=== PATIENT | female | born 1990 | race Two or more races ===

== ENCOUNTER 2023-12-30 06:01 | Inpatient (IN) | payer MEDICAID, OTHER ==
[~2023-12-30] VITALS: Ht 152.4 cm; Wt 69.4 kg
[2023-12-30] MEDS ORDERED: BUTORPHANOL TARTRATE 2 MG/1 ML VIAL IV PRN ×2 (06:30)
[2023-12-30] MEDS ORDERED: PENICILLIN G POT 5MIL/D5 50ML 50 ML IV ONE (06:30)
[2023-12-30] MEDS: WITCH HAZEL-GLYCERIN PAD TOP PRN (07:05)
[2023-12-30] MEDS: DERMOPLAST 60ML BOTTLE TOP PRN (07:05)
[2023-12-30] MEDS: PHISODERM TOP SOLN 240ML BTL TOP PRN (07:05)
[2023-12-30] MEDS: LACTATED RINGER'S 1,000 ML IV SCH (07:06)
[2023-12-30 07:07] LABS: Basophils # (auto) 0 10 ^3/uL (0-0.2); Basophils % (auto) 0.2 % (0.0-2.0); Eosinophils # (auto) 0 10 ^3/uL (0-0.8); Eosinophils % (auto) 0.5 % (0.0-7.0); Hematocrit 39.7 % (36.0-46.0); Hemoglobin 13.8 g/dL (12.2-16.2); Lymphocytes # (auto) 2.6 10 ^3/uL (0.4-5.4); Lymphocytes % (auto) 24.8 % (10.0-50.0); Mean Corpuscular Hemoglobin 32.4 pg (28.0-32.0); Mean Corpuscular Hgb Conc. 34.7 g/dL (32.0-36.0); Mean Corpuscular Volume 93.4 fL (80.0-100.0); Monocytes # (auto) 0.3 10 ^3/uL (0-1.3); Monocytes % (auto) 3.3 % (0.0-12.0); Neutrophils # (auto) 7.6 10 ^3/uL (1.6-8.6); Neutrophils % (auto) 71.2 % (37.0-80.0); Nucleated Red Blood Cells % 0.1 %; Platelet Count (auto) 262 10^3/uL (140-450); Red Blood Cells 4.25 10^6/uL (4.0-5.20); Red Cell Distribution Width 13.9 % (11.8-14.3); White Blood Cell 10.6 10^3/uL (4.4-10.8)
[2023-12-30 07:23] LABS: INR 0.9 (0.9-1.15); Partial Thromboplastin Time 25.6 SEC (24.5-34.5); Prothrombin Time 9.6 sec (9.3-11.8)
[2023-12-30 07:32] LABS: Alanine Aminotransferase 13 U/L (7-40); Albumin 3.6 g/dL (3.2-4.8); Alkaline Phosphatase 216 U/L (46-116); Anion Gap 7 (5-15); Aspartate Aminotransferase 22 U/L (13-40); BUN/Creatinine Ratio 18.5 (10.0-20.0); Bilirubin, Total 0.5 mg/dL (0.2-1.0); Blood Urea Nitrogen 15 mg/dL (9-23); Calcium 9.3 mg/dL (8.7-10.4); Carbon Dioxide 21 mmol/L (20-30); Chloride 106 mmol/L (98-107); Glucose 96 mg/dL (74-106); Potassium 3.7 mmol/L (3.5-5.1); Sodium 134 mmol/L (136-145); Total Protein 6.3 g/dL (5.7-8.2)
[2023-12-30 07:50] LABS: Amphetamine Screen, Urine Neg (NEGATIVE)
[2023-12-30] MEDS: LACT. RINGERS/OXYTOCIN 20UNITS 500 ML IV ONE ×2 (07:50→07:51)
[2023-12-30] MEDS: LIDOCAINE 2%HCL (LOCAL ANESTH.) INJ 20ML MDV IJ PRN (07:51)
[2023-12-30 07:53] LABS: Barbiturate Scree,Urine Neg (NEGATIVE); Benzodiazephine Screen, Urine Neg (NEGATIVE); Cannabinoid Screen, Urine Neg (NEGATIVE); Cocaine Screen, Urine Neg (NEGATIVE); Opiate Scree,Urine Neg (NEGATIVE); Phencyclidine Screen, Urine Neg (NEGATIVE)
[2023-12-30] MEDS ORDERED: ONDANSETRON ODT 4 MG TAB PO PRN (08:00)
[2023-12-30] MEDS ORDERED: ACETAMINOPHEN 325 MG TAB PO PRN (08:00)
[2023-12-30 09:02] LABS: Urine Bacteria FEW /hpf (None Seen); Urine Blood 1+ /uL (Negative); Urine Clarity Clear (Clear); Urine Color Light-Yellow (Yellow); Urine Hyaline Cast FEW /lpf (0 - 2); Urine Mucus FEW (None Seen); Urine Protein, UAD TRACE (Negative); Urine Specific Gravity 1.023 (1.001-1.035); Urine Urobilinogen Normal (Negative); Urine WBC 2 /hpf (0 - 5); Urine pH 5.5 (5.0-9.0)
[2023-12-30] MEDS: IBUPROFEN 600 MG TAB PO PRN (09:06)
[2023-12-30] MEDS: METHYLERGONOVINE MALEATE 0.2 MG/ML AMP IM ONE (09:20)
[2023-12-30 11:10] VITALS: BP 115/75; PULSE 66; RESP 16; TEMP 98.6; O2SAT 98
[2023-12-30] MEDS ORDERED: HYDROcodone-ACET 5/325MG TAB PO PRN (12:00)
[2023-12-30] MEDS: HYDROcodone-ACET 5/325MG TAB PO PRN (12:49)
[2023-12-30 14:46] VITALS: BP 109/65; PULSE 64; RESP 16; TEMP 98.3; O2SAT 98
[2023-12-30 18:30] VITALS: BP 108/67; PULSE 72; RESP 16; TEMP 99.2; O2SAT 97
[2023-12-30] MEDS: DOCUSATE SOD 100 MG CAP PO SCH (21:56)
[2023-12-30 22:33] VITALS: BP 109/59; PULSE 75; RESP 16; TEMP 99.3; O2SAT 97
[2023-12-31 03:29] VITALS: BP 107/67; PULSE 74; RESP 16; TEMP 98.9; O2SAT 97
[2023-12-31] MEDS ORDERED: IBU600T PO (06:55)
[2023-12-31 07:00] VITALS: BP 100/62; PULSE 79; RESP 16; TEMP 98.2; O2SAT 97
[2023-12-31 07:07] LABS: RPR Non Reactive (Non Reactive)
[2023-12-31 07:51] LABS: Basophils # (auto) 0 10 ^3/uL (0-0.2); Basophils % (auto) 0.1 % (0.0-2.0); Eosinophils # (auto) 0 10 ^3/uL (0-0.8); Eosinophils % (auto) 0.2 % (0.0-7.0); Hematocrit 30.4 % (36.0-46.0); Hemoglobin 10.3 g/dL (12.2-16.2); Lymphocytes # (auto) 3.2 10 ^3/uL (0.4-5.4); Lymphocytes % (auto) 20.7 % (10.0-50.0); Mean Corpuscular Hemoglobin 32.1 pg (28.0-32.0); Mean Corpuscular Hgb Conc. 33.8 g/dL (32.0-36.0); Monocytes # (auto) 0.6 10 ^3/uL (0-1.3); Monocytes % (auto) 3.8 % (0.0-12.0); Neutrophils # (auto) 11.8 10 ^3/uL (1.6-8.6); Neutrophils % (auto) 75.2 % (37.0-80.0); Platelet Count (auto) 229 10^3/uL (140-450); Red Blood Cells 3.21 10^6/uL (4.0-5.20); Red Cell Distribution Width 13.8 % (11.8-14.3); White Blood Cell 15.7 10^3/uL (4.4-10.8)
[2023-12-31 08:26] VITALS: BP 100/62; PULSE 79; RESP 16; TEMP 98.2; O2SAT 97
[2023-12-31] MEDS ORDERED: ESCI10TA PO (09:07)
[2023-12-31 11:00] VITALS: BP 106/73; PULSE 72; RESP 16; TEMP 98.4; O2SAT 97
[2023-12-31] MEDS: PANTOPRAZOLE 40 MG TAB PO ONE (11:49)
== END 2023-12-31 15:05 | disposition home or self-care (01) | DRG 560 ==
LOC: EDBD 06:01 → LDRP 06:01 → OBSVTOIN 06:23 → LDRP 07:50
PROVIDERS: ADMIT Obstetrics & Gynecology; ATTEND Obstetrics & Gynecology
PROC: 10E0XZZ Delivery of Products of Conception, External Approach (ICD-10-PCS; principal; 2023-12-30)
PROC: 0KQM0ZZ Repair Perineum Muscle, Open Approach (ICD-10-PCS; 2023-12-30)
PROC: 10907ZC Drainage of Amniotic Fluid, Therapeutic from Products of Conception, Via Natural or Artificial Opening (ICD-10-PCS; 2023-12-30)
PROC: 3E0R3BZ Introduction of Anesthetic Agent into Spinal Canal, Percutaneous Approach (ICD-10-PCS; 2023-12-30)
PROC: 00HU33Z Insertion of Infusion Device into Spinal Canal, Percutaneous Approach (ICD-10-PCS; 2023-12-30)
DX: O69.81X0 Labor and delivery complicated by cord around neck, without compression, not applicable or unspecified (principal); Z37.0 Single live birth; R71.0 Precipitous drop in hematocrit; O99.344 Other mental disorders complicating childbirth; O70.1 Second degree perineal laceration during delivery; O99.62 Diseases of the digestive system complicating childbirth; F32.9 Major depressive disorder, single episode, unspecified; K21.9 Gastro-esophageal reflux disease without esophagitis; K29.50 Unspecified chronic gastritis without bleeding; Z3A.39 39 weeks gestation of pregnancy
CPT/HCPCS: 36415; 59025; 59409; 80053; 80307; 81001; 81002; 85025; 85610; 85730; 86592; 86703; 86803; 86850; 86900; 86901; 94760; 96360; 96365; 96366; 96372; G0378; J2590